=== PATIENT | female | born 1945 | race Caucasian/White ===

== ENCOUNTER 2022-05-04 14:21 | Outpatient (CLI) | payer MEDICARE, BC | END 2022-05-04 14:22 | disposition home or self-care (01) | LOC: CSHRAD 14:21 | PROVIDERS: ATTEND Student in an Organized Health Care Education/Training Program | DX: M54.50 Low back pain, unspecified (principal); M79.18 Myalgia, other site | CPT/HCPCS: 72100; 72170 ==

== ENCOUNTER 2024-02-06 07:35 | Emergency (ER) | payer BC, MEDICARE ==
[2024-02-06 08:10] LABS: #Basophils 0.03 10x3/uL (0.0-0.2); #Eosinphils 0.04 10x3/uL (0.0-0.5); #Monocytes 0.33 10x3/uL (0.0-1.1); #Neutrophils 7.39 10x3/uL (1.5-8.4); %Basophils 0.3 % (0.0-2.0); %Eosinophils 0.5 % (0.0-6.0); %Lymphocytes 10.9 % (18.0-47.0); %Monocytes 3.8 % (0.0-10.0); %Neutrophils 84.2 % (40.0-75.0); Hematocrit 34.2 % (34.9-44.5); Hemoglobin 11.6 g/dL (12.0-15.5); Mean Corpuscular HGB CONC 33.9 g/dL (32.0-36.0); Mean Corpuscular Hemoglobin 29.8 pg (27.0-33.0); Mean Corpuscular Volume 87.9 fL (81.6-98.3); Mean Platelet Volume 10.1 fL (7.4-10.4); Platelet Count 175 10x3/uL (150-450); RBC Distribution Width 13.2 % (11.5-14.5); Red Blood Cell (RBC) Count 3.89 10x6/uL (3.90-5.03); White Blood Cell (WBC) Count 8.8 10x3/uL (3.5-10.5)
[2024-02-06 08:16] LABS: Anion Gap 14 mmol/L (10-20); BUN (Urea Nitrogen) 22 mg/dL (9.8-20.1); Calc. Creatinine Clearance 0 mL/min (70-130); Calcium 9.2 mg/dL (7.8-10.44); Carbon Dioxide 21 mmol/L (23-31); Chloride 107 mmol/L (98-107); Estimated GFR 72; Glucose 103 mg/dL (83-110); Sodium 138 mmol/L (136-145)
== END 2024-02-06 09:15 | disposition home or self-care (01) ==
LOC: CSHERS 07:35
DX: K59.00 Constipation, unspecified (principal)
CPT/HCPCS: 36415; 74177; 80048; 83605; 85025